=== PATIENT | male | born 1955 | race Caucasian/White ===

== ENCOUNTER 2019-03-09 12:12 | Emergency (ER) | payer BC ==
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
[2019-03-09 15:07] VITALS: BP 154/87
== END 2019-03-09 14:30 | disposition home or self-care (01) ==
LOC: ED 12:12
DX: S82.142A Displaced bicondylar fracture of left tibia, initial encounter for closed fracture (principal); V29.88XA Motorcycle rider (driver) (passenger) injured in other specified transport accidents, initial encounter; Y92.9 Unspecified place or not applicable
CPT/HCPCS: 99284